=== PATIENT | male | born 1990 | race Caucasian/White ===

== ENCOUNTER 2018-05-05 00:37 | Emergency (ER) | payer MEDICARE, OTHER, MEDICAID | END 2018-05-05 05:01 | disposition home or self-care (01) | LOC: E/R 00:37 | DX: G47.00 Insomnia, unspecified (principal); R40.2142 Coma scale, eyes open, spontaneous, at arrival to emergency department; R40.2362 Coma scale, best motor response, obeys commands, at arrival to emergency department; R40.2252 Coma scale, best verbal response, oriented, at arrival to emergency department | CPT/HCPCS: 99284 ==